=== PATIENT | female | born 1990 | race Caucasian/White ===

== ENCOUNTER 2016-04-11 23:36 | Emergency (ER) | payer OTHER ==
[2016-04-12 00:41] LABS: SPECIFIC GRAVITY 1.015 (1.001-1.030); URINE APPEARANCE CLEAR; URINE BILIRUBIN NEGATIVE (NEGATIVE); URINE BLOOD NEGATIVE (NEGATIVE); URINE COLOR LIGHT YELLOW; URINE GLUCOSE (UA) NEGATIVE (NEGATIVE); URINE LEUKOCYTE ESTERASE NEGATIVE (NEGATIVE); URINE NITRITE NEGATIVE (NEGATIVE); URINE PROTEIN NEGATIVE (NEGATIVE); URINE UROBILINOGEN NORMAL (0-1 mg/dl)
[2016-04-12 00:42] LABS: HCG,QUALITATIVE URINE NEGATIVE
[2016-04-12] MEDS ORDERED: ACETAMINOPHEN 500 MG TABLET ONE (02:02)
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
== END 2016-04-12 01:52 | disposition home or self-care (01) ==
LOC: ED 23:36
DX: S06.0X9A Concussion with loss of consciousness of unspecified duration, initial encounter (principal); S09.90XA Unspecified injury of head, initial encounter; R22.0 Localized swelling, mass and lump, head; M79.632 Pain in left forearm; M79.662 Pain in left lower leg; R07.81 Pleurodynia; M54.2 Cervicalgia; Y04.2XXA Assault by strike against or bumped into by another person, initial encounter; Y92.009 Unspecified place in unspecified non-institutional (private) residence as the place of occurrence of the external cause
CPT/HCPCS: 81025; 81003; 73090; 73590; 72125; 70450; 70486; 71250; 99284 ×2; A9270